=== PATIENT | female | born 1960 | race Caucasian/White ===

== ENCOUNTER 2016-10-14 10:21 | Inpatient (IN) | payer BC, OTHER ==
[~2016-10-14] VITALS: Ht 162.6 cm; Wt 78.3 kg
[~2016-10-14 10:21] MED LIST: CYCL-259 PO; LACT1CAP35 PO; LISI-170 PO; MULT-208 PO; RANI150C PO; TRAM50TA2 PO; VITA1TAB3 PO
[2016-10-14 10:53] VITALS: BP 156/91
[2016-10-14] MEDS ORDERED: LACTATED RINGERS 1,000 ML IV SCH (10:59)
[2016-10-14] MEDS ORDERED: MIDAZOLAM 1 MG/ML, 2ML ONE (12:04)
[2016-10-14] MEDS ORDERED: FENTANYL PF 250 MCG/5ML ONE (12:05)
[2016-10-14] MEDS ORDERED: THROMBIN 5,000 UNIT VIAL TP ONE (12:15)
[2016-10-14] MEDS ORDERED: BUPIVACAINE/PF-EPI 0.25% 1:200K ONE (12:16)
[2016-10-14] MEDS ORDERED: BACITRACIN 50,000 UNIT ONE (12:16)
[2016-10-14] MEDS ORDERED: REMIFENTANIL 2 MG ONE (12:19)
[2016-10-14] MEDS ORDERED: KETAMINE 10 MG/ML, 20ML ONE (12:21)
[2016-10-14] MEDS ORDERED: LABETALOL 5MG/ML, 20ML IV PRN ×2 (13:00→17:00)
[2016-10-14] MEDS ORDERED: ONDANSETRON 2MG/ML, 2ML IVPush PRN (13:00)
[2016-10-14] MEDS ORDERED: MIDAZOLAM 1 MG/ML, 2ML IV PRN (13:00)
[2016-10-14] MEDS ORDERED: ACETAMINOPHEN 325 MG TABLET PO PRN (13:00)
[2016-10-14] MEDS ORDERED: hydrALAzine 20 MG/ML, 1ML IV PRN (13:00)
[2016-10-14] MEDS ORDERED: PROMETHAZINE 25 MG/ML, 1ML IV PRN (13:00)
[2016-10-14] MEDS ORDERED: MEPERIDINE/PF 25MG/0.5ML IVPush PRN (13:00)
[2016-10-14] MEDS ORDERED: OXYcodone 5 MG/5 ML ORAL.SOL UDC PO PRN (13:00)
[2016-10-14] MEDS ORDERED: MORPHINE SULFATE 4 MG/ML, 1ML ONE ×2 (13:52→13:53)
[2016-10-14] MEDS ORDERED: FENTANYL PF 100 MCG/2ML ONE ×2 (14:30→14:37)
[2016-10-14] MEDS ORDERED: morphine SULFATE 10 MG/ML, 1ML ONE (14:37)
[2016-10-14] MEDS ORDERED: OXYcodone 5 MG/5 ML ORAL.SOL UDC ONE (14:38)
[2016-10-14] MEDS ORDERED: MEPERIDINE/PF 25MG/0.5ML ONE (14:38)
[2016-10-14] MEDS: morphine SULFATE 10 MG/ML, 1ML IV PRN ×2 (14:59→15:21)
[2016-10-14] MEDS: FENTANYL PF 100 MCG/2ML IV PRN ×2 (15:05→15:12)
[2016-10-14] MEDS ORDERED: DEXAMETHASONE 4 MG/ML, 1ML ONE (16:09)
[2016-10-14] MEDS ORDERED: METOCLOPRAMIDE 5 MG/ML, 2ML ONE (16:09)
[2016-10-14] MEDS ORDERED: CEFAZOLIN 1,000 MG ONE (16:09)
[2016-10-14] MEDS ORDERED: PROPOFOL 10 MG/ML, 20ML ONE (16:09)
[2016-10-14] MEDS ORDERED: PROPOFOL 10 MG/ML, 50ML ONE (16:09)
[2016-10-14] MEDS ORDERED: ONDANSETRON 2MG/ML, 2ML ONE (16:09)
[2016-10-14] MEDS ORDERED: SUCCINYLCHOLINE 20 MG/ML, 10ML ONE (16:09)
[2016-10-14] MEDS ORDERED: PHENYLEPHRINE 10 MG/ML ONE (16:09)
[2016-10-14] MEDS ORDERED: ONDANSETRON 2MG/ML, 2ML IV PRN (17:00)
[2016-10-14] MEDS ORDERED: DIPHENHYDRAMINE 50 MG/ML, 1ML IVPush PRN (17:00)
[2016-10-14] MEDS ORDERED: DIPHENHYDRAMINE 25 MG CAPSULE PO PRN (17:00)
[2016-10-14] MEDS ORDERED: BISACODYL 10 MG SUPP PR PRN (17:00)
[2016-10-14] MEDS ORDERED: HYDROcodone/APAP 10/325 MG TABLET PO PRN (17:00)
[2016-10-14] MEDS: D5%-0.9% NACL+KCL 20MEQ 1,000 ML IV SCH ×2 (17:00→20:51)
[2016-10-14] MEDS ORDERED: MAGNESIUM HYDROXIDE 8%, 30ML UDC PO PRN (17:00)
[2016-10-14] MEDS ORDERED: morphine SULFATE 10 MG/ML, 1ML IV PRN (17:00)
[2016-10-14] MEDS: DEXAMETHASONE 4 MG/ML, 1ML IV SCH ×2 (17:37→22:46)
[2016-10-14 18:33] VITALS: BP 129/55
[2016-10-14] MEDS: HYDROcodone/APAP 5/325 TABLET PO PRN (20:24)
[2016-10-14] MEDS: CEFAZOLIN PMX 1GM/50ML 50 ML IVPB SCH (20:24)
[2016-10-14] MEDS: CYCLOBENZAPRINE 10 MG TABLET PO PRN (22:53)
[2016-10-14 23:52] VITALS: BP 124/70
[2016-10-15] MEDS: HYDROcodone/APAP 5/325 TABLET PO PRN ×4 (00:33→12:47)
[2016-10-15 04:13] VITALS: BP 131/76
[2016-10-15] MEDS: CEFAZOLIN PMX 1GM/50ML 50 ML IVPB SCH (04:34)
[2016-10-15] MEDS: DEXAMETHASONE 4 MG/ML, 1ML IV SCH (05:31)
[2016-10-15 05:55] LABS: HEMOGLOBIN 13.1 g/dL (11.7-16.4)
[2016-10-15 06:06] LABS: BLOOD UREA NITROGEN 14 mg/dL (7-18)
[2016-10-15] MEDS: CYCLOBENZAPRINE 10 MG TABLET PO PRN (07:02)
[2016-10-15 07:39] VITALS: BP 130/63
[2016-10-15] MEDS ORDERED: SENNA/DOCUSATE TABLET PO SCH (09:00)
[2016-10-15] MEDS ORDERED: HYDR-883 PO (13:00)
[2016-10-15] MEDS ORDERED: METH4TAB2 PO (13:00)
== END 2016-10-15 13:00 | disposition home or self-care (01) | DRG 472 ==
LOC: ORIP 10:21 → 4NOR 15:58 → DCLOUNGE 10-15 12:11
PROVIDERS: ADMIT Neurological Surgery; ATTEND Neurological Surgery
PROC: 01N10ZZ Release Cervical Nerve, Open Approach (ICD-10-PCS; 2016-10-14)
PROC: 4A11X4G Monitoring of Peripheral Nervous Electrical Activity, Intraoperative, External Approach (ICD-10-PCS; 2016-10-14)
PROC: 0RG20A0 Fusion of 2 or more Cervical Vertebral Joints with Interbody Fusion Device, Anterior Approach, Anterior Column, Open Approach (ICD-10-PCS; principal; 2016-10-14 12:30)
DX: M48.02 Spinal stenosis, cervical region (principal); M50.021 Cervical disc disorder at C4-C5 level with myelopathy; G95.89 Other specified diseases of spinal cord; M50.121 Cervical disc disorder at C4-C5 level with radiculopathy; F17.210 Nicotine dependence, cigarettes, uncomplicated; Z80.3 Family history of malignant neoplasm of breast; Z82.49 Family history of ischemic heart disease and other diseases of the circulatory system; Z80.42 Family history of malignant neoplasm of prostate
CPT/HCPCS: 36415; 72040; 80048; 85025; 85610; 85730; 86850; 86900; J0690; J1100; J2175; J2250; J2405; J2704; J3010; J0330; J2270; J2370; J2765; J3480; J7120

== ENCOUNTER → 2020-07-01 | Outpatient (CLI) | payer BC ==
[~2020-07-01] MED LIST changes: +CETI10TA76 PO; +FLUT9.9S NAS; +HYDR-3622 PO; +HYDR-3652 PO; +HYDROCHLOROTH12.5 MG PO; +IBUP200C8 PO; +IRBE300T8 PO; +LANS15CA5 PO; +LEVO112T2 PO; +LEVO125T PO; +METH4TAB2 PO; +METH750T2 PO; +NICO-486 TD; +PSYL1PAC9 PO; +SIMV20TA19 PO
[2020-07-01 10:19] LABS: BASOPHILS % (AUTO) 0 % (0-1); EOSINOPHILS % (AUTO) 1 % (1-7); LYMPHOCYTES % (AUTO) 31 % (22-44); MEAN CORPUSCULAR HEMOGLOBIN 31.7 pg (27.0-34.8); MEAN CORPUSCULAR HGB CONC 33.6 g/dL (32.4-35.8); MONOCYTES % (AUTO) 5 % (2-9); NEUTROPHILS % (AUTO) 63 % (42-75); PLATELET COUNT 368 x10^3/uL (130-400); RED BLOOD COUNT 4.88 x10^6/uL (3.82-5.3)
[2020-07-01 10:23] LABS: MD NO
[2020-07-01 10:27] LABS: MICROSCOPIC AUTO
[2020-07-01 10:29] LABS: ALBUMIN 4.4 g/dL (3.4-5.0); ANION GAP 5 mmol/L (5-15); CALCIUM 9.6 mg/dL (8.5-10.1); CHLORIDE 103 mmol/L (98-107)
[2020-07-01 10:30] LABS: INTERNATIONAL NORMALIZED RATIO 0.95 (0.93-1.1); PROTHROMBIN TIME 10.1 Seconds (9.6-11.5)
[2020-07-01 10:33] LABS: ALANINE AMINOTRANSFERASE 29 U/L (12-78); ALKALINE PHOSPHATASE 87 U/L (45-117); BILIRUBIN,TOTAL 0.7 mg/dL (0.2-1.0); CREATININE 0.92 mg/dL (0.55-1.02); TOTAL PROTEIN 7.8 g/dL (6.4-8.2)
== END | disposition home or self-care (01) ==
LOC: STAR 07:38
PROVIDERS: ATTEND Neurological Surgery
DX: Z01.812 Encounter for preprocedural laboratory examination (principal); Z20.828 Contact with and (suspected) exposure to other viral communicable diseases; Z01.811 Encounter for preprocedural respiratory examination; Z01.810 Encounter for preprocedural cardiovascular examination; R94.31 Abnormal electrocardiogram [ECG] [EKG]; R79.1 Abnormal coagulation profile; R82.90 Unspecified abnormal findings in urine; M54.16 Radiculopathy, lumbar region; M51.26 Other intervertebral disc displacement, lumbar region; M43.16 Spondylolisthesis, lumbar region; M48.061 Spinal stenosis, lumbar region without neurogenic claudication
CPT/HCPCS: 71046; 80053; 81001; 85025; 85610; 85730; 87086; 87635; 93005

== ENCOUNTER 2020-07-07 05:27 | Inpatient (IN) | payer BC ==
[~2020-07-07] VITALS: Ht 162.6 cm; Wt 83.0 kg
[2020-07-07 06:20] VITALS: BP 149/85
[2020-07-07] MEDS ORDERED: LACTATED RINGERS 1,000 ML IV SCH (06:30)
[2020-07-07] MEDS ORDERED: CHLORHEXIDINE 15 ML UDC MM ONE (06:30)
[2020-07-07] MEDS ORDERED: MIDAZOLAM 1 MG/ML, 2ML ONE (06:41)
[2020-07-07] MEDS ORDERED: FENTANYL PF 250 MCG/5ML ONE (06:42)
[2020-07-07] MEDS ORDERED: VANCOMYCIN 1,000 MG ONE (06:42)
[2020-07-07] MEDS ORDERED: BUPIVACAINE/PF 0.5% ONE (06:42)
[2020-07-07] MEDS ORDERED: BACITRACIN 50,000 UNIT ONE (06:42)
[2020-07-07] MEDS ORDERED: EPINEPHRINE 1 MG/ML, 1ML ONE (06:42)
[2020-07-07] MEDS ORDERED: ONDANSETRON 2MG/ML, 2ML ONE (06:54)
[2020-07-07] MEDS ORDERED: ROCURONIUM 10 MG/ML,10ML ONE (06:54)
[2020-07-07] MEDS ORDERED: CEFAZOLIN 1,000 MG ONE (06:54)
[2020-07-07] MEDS ORDERED: DEXAMETHASONE 4 MG/ML, 1ML ONE (06:54)
[2020-07-07] MEDS ORDERED: SUGAMMADEX 200 MG/2 ML IVPush ONE (06:54)
[2020-07-07] MEDS ORDERED: PROPOFOL 10 MG/ML, 20ML ONE (06:54)
[2020-07-07] MEDS ORDERED: METHOCARBAMOL 1,000 MG in DEXTROSE 5% 100 ML IV PRN (07:30)
[2020-07-07] MEDS ORDERED: MEPERIDINE/PF 25MG/0.5ML IVPush PRN (07:30)
[2020-07-07] MEDS ORDERED: OXYcodone 5 MG/5 ML ORAL.SOL UDC PO PRN (07:30)
[2020-07-07] MEDS ORDERED: hydrALAzine 20 MG/ML, 1ML IV PRN (07:30)
[2020-07-07] MEDS ORDERED: PROMETHAZINE 25 MG/ML, 1ML IVPush PRN (07:30)
[2020-07-07] MEDS ORDERED: morphine SULFATE 10 MG/ML, 1ML IVPush PRN (07:30)
[2020-07-07] MEDS ORDERED: ONDANSETRON 2MG/ML, 2ML IVPush PRN (07:30)
[2020-07-07] MEDS ORDERED: DIPHENHYDRAMINE 50 MG/ML, 1ML IVPush PRN ×2 (07:30→09:00)
[2020-07-07] MEDS ORDERED: LABETALOL 5MG/ML, 20ML IV PRN (07:30)
[2020-07-07] MEDS ORDERED: ACETAMINOPHEN 325 MG TABLET PO PRN (07:30)
[2020-07-07] MEDS ORDERED: FENTANYL PF 100 MCG/2ML IV PRN (07:30)
[2020-07-07] MEDS ORDERED: DIAZEPAM 5 MG/ML, 2ML IVPush PRN (07:30)
[2020-07-07] MEDS ORDERED: THROMBIN 5,000 UNIT VIAL TP ONE (07:49)
[2020-07-07] MEDS ORDERED: THROMBIN 20,000 UNIT VIAL TP ONE (08:17)
[2020-07-07] MEDS ORDERED: MAGNESIUM HYDROXIDE 8%, 30ML UDC PO PRN (09:00)
[2020-07-07] MEDS: CETIRIZINE 10 MG TABLET PO SCH (09:00)
[2020-07-07] MEDS ORDERED: METHOCARBAMOL 1,000 MG in DEXTROSE 5% 100 ML IV ONE (09:00)
[2020-07-07] MEDS: MULTIVITAMIN 1 TABLET PO SCH (09:00)
[2020-07-07] MEDS ORDERED: PROMETHAZINE 25 MG/ML, 1ML IM PRN (09:00)
[2020-07-07] MEDS ORDERED: BISACODYL 10 MG SUPP PR PRN (09:00)
[2020-07-07] MEDS: METHOCARBAMOL 750 MG TABLET PO SCH ×3 (09:00→21:07)
[2020-07-07] MEDS: LEVOTHYROXINE 112 MCG TABLET PO SCH (09:00)
[2020-07-07] MEDS ORDERED: TEMPLATE NON-FORMULARY MED. (Vitamin B Complex** 1 TAB) PO SCH (09:00)
[2020-07-07] MEDS: SODIUM CHLORIDE FLUSH 10ML SYR IVF SCH ×2 (09:00→21:00)
[2020-07-07] MEDS ORDERED: PHARMACY MAY ADJ FOR RENAL FX MC PRN (09:00)
[2020-07-07] MEDS: LEVOTHYROXINE 125 MCG TABLET PO SCH (09:00)
[2020-07-07] MEDS ORDERED: FENTANYL PF 100 MCG/2ML ONE (09:02)
[2020-07-07] MEDS ORDERED: MEPERIDINE/PF 25MG/ML,1ML ONE (09:04)
[2020-07-07] MEDS ORDERED: OXYcodone 5 MG/5 ML ORAL.SOL UDC ONE (09:15)
[2020-07-07] MEDS ORDERED: ACETAMINOPHEN 650 MG/20.3 ML UDC ONE (09:15)
[2020-07-07] MEDS: HYDROCHLOROTHIAZIDE 12.5 MG CAPSULE PO SCH (11:07)
[2020-07-07] MEDS: NICOTINE 14MG/24 HR PATCH.TD24 TD SCH (11:08)
[2020-07-07] MEDS: morphine SULFATE 10 MG/ML, 1ML IVPush PRN ×4 (11:09→23:50)
[2020-07-07] MEDS: D5%-0.9% NACL+KCL 20MEQ 1,000 ML IV SCH ×2 (11:57→21:13)
[2020-07-07 12:00] VITALS: BP 117/74
[2020-07-07] MEDS: HYDROcodone/APAP 5/325 TABLET PO PRN ×3 (14:07→22:38)
[2020-07-07] MEDS: CEFAZOLIN PMX 1GM/50ML 50 ML IVPB SCH (16:11)
[2020-07-07] MEDS: SIMVASTATIN 20 MG TABLET PO SCH (19:32)
[2020-07-07 20:03] VITALS: BP 113/60
[2020-07-07 23:59] VITALS: BP 115/60
[2020-07-08] MEDS: CEFAZOLIN PMX 1GM/50ML 50 ML IVPB SCH ×3 (00:15→22:10)
[2020-07-08 04:03] VITALS: BP 108/69
[2020-07-08] MEDS: morphine SULFATE 10 MG/ML, 1ML IVPush PRN ×4 (04:10→22:11)
[2020-07-08] MEDS: LEVOTHYROXINE 112 MCG TABLET PO SCH (04:25)
[2020-07-08] MEDS: PANTOPRAZOLE 40MG TABLET PO SCH (05:28)
[2020-07-08] MEDS ORDERED: ENOXAPARIN 40 MG/0.4 ML SQ SCH (06:00)
[2020-07-08] MEDS ORDERED: VANCOMYCIN 1,000 MG ONE (06:09)
[2020-07-08] MEDS ORDERED: BACITRACIN 50,000 UNIT ONE (06:09)
[2020-07-08] MEDS ORDERED: BUPIVACAINE/EPI 0.5% 1:200K ONE (06:09)
[2020-07-08] MEDS ORDERED: CHLORHEXIDINE 15 ML UDC ONE (06:27)
[2020-07-08] MEDS ORDERED: CHLORHEXIDINE 15 ML UDC MM ONE (06:30)
[2020-07-08] MEDS ORDERED: FENTANYL PF 250 MCG/5ML ONE (06:40)
[2020-07-08] MEDS ORDERED: MIDAZOLAM 1 MG/ML, 2ML ONE (06:40)
[2020-07-08] MEDS ORDERED: BUPIVACAINE/EPI 0.5% 1:200K INFIL ONE (07:38)
[2020-07-08] MEDS ORDERED: BACITRACIN 50,000 UNIT IRRIG ONE (07:39)
[2020-07-08] MEDS ORDERED: VANCOMYCIN 1,000 MG IM ONE (07:39)
[2020-07-08] MEDS ORDERED: LABETALOL 5MG/ML, 20ML IV PRN (08:00)
[2020-07-08] MEDS ORDERED: ACETAMINOPHEN 325 MG TABLET PO PRN (08:00)
[2020-07-08] MEDS ORDERED: OXYcodone 5 MG/5 ML ORAL.SOL UDC PO PRN (08:00)
[2020-07-08] MEDS ORDERED: PROMETHAZINE 25 MG/ML, 1ML IVPush PRN (08:00)
[2020-07-08] MEDS ORDERED: METHOCARBAMOL 1,000 MG in DEXTROSE 5% 100 ML IV PRN (08:00)
[2020-07-08] MEDS ORDERED: LORazepam 2 MG/ML, 1ML IVPush PRN (08:00)
[2020-07-08] MEDS ORDERED: morphine SULFATE 10 MG/ML, 1ML IVPush PRN ×2 (08:00→10:30)
[2020-07-08] MEDS ORDERED: MEPERIDINE/PF 25MG/0.5ML IVPush PRN (08:00)
[2020-07-08] MEDS ORDERED: ALBUTEROL SULFATE 2.5 MG/3 ML NPPB PRN (08:00)
[2020-07-08] MEDS: VITAMIN B COMPLEX HOMEMEDPO SCH (08:36)
[2020-07-08] MEDS: SODIUM CHLORIDE FLUSH 10ML SYR IVF SCH ×4 (08:36→21:00)
[2020-07-08] MEDS: MULTIVITAMIN 1 TABLET PO SCH (08:36)
[2020-07-08] MEDS: METHOCARBAMOL 750 MG TABLET PO SCH ×3 (08:37→21:00)
[2020-07-08] MEDS: CETIRIZINE 10 MG TABLET PO SCH (08:37)
[2020-07-08] MEDS ORDERED: FLUTICASONE NASAL SPRAY 16GM NAS PRN (09:00)
[2020-07-08] MEDS ORDERED: PROPOFOL 10 MG/ML, 20ML ONE (09:49)
[2020-07-08] MEDS ORDERED: GLYCOPYRROLATE 0.2MG/1ML, 5ML ONE (09:49)
[2020-07-08] MEDS ORDERED: CEFAZOLIN 1,000 MG ONE (09:49)
[2020-07-08] MEDS ORDERED: NEOSTIGMINE 1 MG/ML, 10ML ONE (09:49)
[2020-07-08] MEDS ORDERED: ONDANSETRON 2MG/ML, 2ML ONE (09:49)
[2020-07-08] MEDS ORDERED: ROCURONIUM 10MG/ML,5ML ONE (09:49)
[2020-07-08] MEDS ORDERED: METHOCARBAMOL 1,000 MG in DEXTROSE 5% 100 ML IV ONE (10:30)
[2020-07-08] MEDS ORDERED: BISACODYL 10 MG SUPP PR PRN (10:30)
[2020-07-08] MEDS ORDERED: PHARMACY MAY ADJ FOR RENAL FX MC PRN (10:30)
[2020-07-08] MEDS ORDERED: DIPHENHYDRAMINE 50 MG/ML, 1ML IVPush PRN (10:30)
[2020-07-08] MEDS: IRBESARTAN 300 MG TABLET PO SCH (10:30)
[2020-07-08] MEDS ORDERED: MAGNESIUM HYDROXIDE 8%, 30ML UDC PO PRN (10:30)
[2020-07-08] MEDS ORDERED: SENNA/DOCUSATE TABLET PO PRN (10:30)
[2020-07-08] MEDS ORDERED: PROMETHAZINE 25 MG/ML, 1ML IM PRN (10:30)
[2020-07-08] MEDS ORDERED: ONDANSETRON 2MG/ML, 2ML IVPush PRN (10:30)
[2020-07-08] MEDS ORDERED: HYDROcodone/APAP 5/325 TABLET PO PRN (10:30)
[2020-07-08] MEDS ORDERED: OXYcodone/APAP 5/325MG TABLET PO PRN (10:30)
[2020-07-08] MEDS ORDERED: MORPHINE SULFATE 4 MG/ML, 1ML ONE (10:31)
[2020-07-08] MEDS ORDERED: FENTANYL PF 100 MCG/2ML ONE ×2 (10:31→10:59)
[2020-07-08] MEDS: FENTANYL PF 100 MCG/2ML IV PRN ×4 (10:33→11:27)
[2020-07-08] MEDS ORDERED: OXYcodone 5 MG/5 ML ORAL.SOL UDC ONE (10:37)
[2020-07-08] MEDS ORDERED: ACETAMINOPHEN 650 MG/20.3 ML UDC ONE (10:38)
[2020-07-08] MEDS: HYDROCHLOROTHIAZIDE 12.5 MG CAPSULE PO SCH (12:00)
[2020-07-08] MEDS: NICOTINE 14MG/24 HR PATCH.TD24 TD SCH (13:36)
[2020-07-08 14:00] VITALS: BP 115/62
[2020-07-08] MEDS: D5%-0.9% NACL+KCL 20MEQ 1,000 ML IV SCH ×2 (14:25→20:30)
[2020-07-08 19:00] VITALS: BP 117/72
[2020-07-08] MEDS: SIMVASTATIN 20 MG TABLET PO SCH (19:21)
[2020-07-08] MEDS: OXYcodone/APAP 5/325MG TABLET PO PRN (19:21)
[2020-07-09 00:26] VITALS: BP 119/72
[2020-07-09] MEDS: OXYcodone/APAP 5/325MG TABLET PO PRN ×3 (00:55→10:04)
[2020-07-09] MEDS: morphine SULFATE 10 MG/ML, 1ML IVPush PRN ×4 (01:50→19:25)
[2020-07-09 03:54] VITALS: BP 100/67
[2020-07-09] MEDS: LEVOTHYROXINE 125 MCG TABLET PO SCH (05:16)
[2020-07-09] MEDS: PANTOPRAZOLE 40MG TABLET PO SCH (05:30)
[2020-07-09] MEDS: ENOXAPARIN 40 MG/0.4 ML SQ SCH (05:31)
[2020-07-09] MEDS: SENNA/DOCUSATE TABLET PO PRN (06:20)
[2020-07-09 06:23] VITALS: BP 118/77
[2020-07-09] MEDS: D5%-0.9% NACL+KCL 20MEQ 1,000 ML IV SCH ×2 (06:30→16:30)
[2020-07-09] MEDS: CETIRIZINE 10 MG TABLET PO SCH (08:09)
[2020-07-09] MEDS: HYDROCHLOROTHIAZIDE 12.5 MG CAPSULE PO SCH (08:10)
[2020-07-09] MEDS: VITAMIN B COMPLEX HOMEMEDPO SCH (08:10)
[2020-07-09] MEDS: IRBESARTAN 300 MG TABLET PO SCH (08:10)
[2020-07-09] MEDS: NICOTINE 14MG/24 HR PATCH.TD24 TD SCH (08:10)
[2020-07-09] MEDS: SODIUM CHLORIDE FLUSH 10ML SYR IVF SCH ×4 (08:11→21:00)
[2020-07-09] MEDS: MULTIVITAMIN 1 TABLET PO SCH (08:11)
[2020-07-09] MEDS: METHOCARBAMOL 750 MG TABLET PO SCH ×3 (08:11→20:03)
[2020-07-09] MEDS: ONDANSETRON 2MG/ML, 2ML IVPush PRN ×2 (08:18→13:47)
[2020-07-09 12:20] VITALS: BP 105/71
[2020-07-09] MEDS: HYDROcodone/APAP 5/325 TABLET PO PRN ×3 (15:56→23:49)
[2020-07-09] MEDS: PSYLLIUM PACKET PO SCH (17:45)
[2020-07-09] MEDS: SIMVASTATIN 20 MG TABLET PO SCH (20:03)
[2020-07-09 20:06] VITALS: BP 94/60
[2020-07-10] MEDS: morphine SULFATE 10 MG/ML, 1ML IVPush PRN ×4 (00:25→20:42)
[2020-07-10 01:51] VITALS: BP 110/72
[2020-07-10] MEDS: D5%-0.9% NACL+KCL 20MEQ 1,000 ML IV SCH ×2 (02:30→12:30)
[2020-07-10] MEDS: HYDROcodone/APAP 5/325 TABLET PO PRN ×5 (03:46→19:34)
[2020-07-10] MEDS: ENOXAPARIN 40 MG/0.4 ML SQ SCH (06:00)
[2020-07-10] MEDS: PANTOPRAZOLE 40MG TABLET PO SCH (06:00)
[2020-07-10] MEDS: LEVOTHYROXINE 112 MCG TABLET PO SCH (06:00)
[2020-07-10 07:06] VITALS: BP 120/73
[2020-07-10] MEDS: METHOCARBAMOL 750 MG TABLET PO SCH ×3 (07:56→21:16)
[2020-07-10] MEDS: MULTIVITAMIN 1 TABLET PO SCH (07:56)
[2020-07-10] MEDS: HYDROCHLOROTHIAZIDE 12.5 MG CAPSULE PO SCH (07:56)
[2020-07-10] MEDS: CETIRIZINE 10 MG TABLET PO SCH (07:57)
[2020-07-10] MEDS: SENNA/DOCUSATE TABLET PO PRN (07:57)
[2020-07-10] MEDS: PSYLLIUM PACKET PO SCH (07:57)
[2020-07-10] MEDS: IRBESARTAN 300 MG TABLET PO SCH (08:00)
[2020-07-10] MEDS: SODIUM CHLORIDE FLUSH 10ML SYR IVF SCH ×4 (08:00→21:19)
[2020-07-10] MEDS: VITAMIN B COMPLEX HOMEMEDPO SCH (08:00)
[2020-07-10] MEDS: NICOTINE 14MG/24 HR PATCH.TD24 TD SCH (08:01)
[2020-07-10] MEDS: DEXAMETHASONE 4 MG/ML, 1ML IVPush SCH ×3 (09:31→21:15)
[2020-07-10] MEDS: KETOROLAC 30 MG/1 ML IVPush SCH ×3 (09:32→21:16)
[2020-07-10 12:25] VITALS: BP 140/83
[2020-07-10 19:04] VITALS: BP 102/62
[2020-07-10] MEDS: SIMVASTATIN 20 MG TABLET PO SCH (21:16)
[2020-07-11 01:35] VITALS: BP 121/65
[2020-07-11] MEDS: D5%-0.9% NACL+KCL 20MEQ 1,000 ML IV SCH ×2 (02:00→11:59)
[2020-07-11] MEDS: KETOROLAC 30 MG/1 ML IVPush SCH ×2 (02:06→09:25)
[2020-07-11] MEDS: DEXAMETHASONE 4 MG/ML, 1ML IVPush SCH ×2 (02:06→09:25)
[2020-07-11] MEDS: HYDROcodone/APAP 5/325 TABLET PO PRN ×3 (02:07→12:18)
[2020-07-11] MEDS: LEVOTHYROXINE 112 MCG TABLET PO SCH (03:59)
[2020-07-11] MEDS: ENOXAPARIN 40 MG/0.4 ML SQ SCH (05:54)
[2020-07-11] MEDS: PANTOPRAZOLE 40MG TABLET PO SCH (05:55)
[2020-07-11 07:05] VITALS: BP 126/70
[2020-07-11] MEDS ORDERED: HYDR-3246 PO (08:27)
[2020-07-11] MEDS: SODIUM CHLORIDE FLUSH 10ML SYR IVF SCH ×2 (09:00→09:26)
[2020-07-11] MEDS: VITAMIN B COMPLEX HOMEMEDPO SCH (09:00)
[2020-07-11] MEDS: CETIRIZINE 10 MG TABLET PO SCH (09:25)
[2020-07-11] MEDS: IRBESARTAN 300 MG TABLET PO SCH (09:25)
[2020-07-11] MEDS: MULTIVITAMIN 1 TABLET PO SCH (09:25)
[2020-07-11] MEDS: NICOTINE 14MG/24 HR PATCH.TD24 TD SCH (09:25)
[2020-07-11] MEDS: METHOCARBAMOL 750 MG TABLET PO SCH (09:25)
[2020-07-11] MEDS: HYDROCHLOROTHIAZIDE 12.5 MG CAPSULE PO SCH (09:25)
[2020-07-11] MEDS: morphine SULFATE 10 MG/ML, 1ML IVPush PRN (11:32)
== END 2020-07-11 13:05 | disposition home or self-care (01) | DRG 455 ==
LOC: ORIP 05:27 → 4NE 10:13
PROVIDERS: ADMIT Neurological Surgery; ATTEND Neurological Surgery
PROC: 00NY0ZZ Release Lumbar Spinal Cord, Open Approach (ICD-10-PCS; 2020-07-08)
PROC: 01NB0ZZ Release Lumbar Nerve, Open Approach (ICD-10-PCS; 2020-07-08)
PROC: 0SB20ZZ Excision of Lumbar Vertebral Disc, Open Approach (ICD-10-PCS; 2020-07-08)
PROC: 4A11X4G Monitoring of Peripheral Nervous Electrical Activity, Intraoperative, External Approach (ICD-10-PCS; 2020-07-08)
PROC: 0SG10AJ Fusion of 2 or more Lumbar Vertebral Joints with Interbody Fusion Device, Posterior Approach, Anterior Column, Open Approach (ICD-10-PCS; principal; 2020-07-08 07:00)
PROC: 0SG0071 Fusion of Lumbar Vertebral Joint with Autologous Tissue Substitute, Posterior Approach, Posterior Column, Open Approach (ICD-10-PCS; 2020-07-08 07:00)
DX: M51.16 Intervertebral disc disorders with radiculopathy, lumbar region (principal); M43.16 Spondylolisthesis, lumbar region; M48.062 Spinal stenosis, lumbar region with neurogenic claudication; F17.210 Nicotine dependence, cigarettes, uncomplicated; Z53.9 Procedure and treatment not carried out, unspecified reason; Z88.5 Allergy status to narcotic agent; Z79.899 Other long term (current) drug therapy
CPT/HCPCS: 36415; 72100; S0020; 72131; 86850; 86900; C1713; C1776; G0378; J0171; J0690; J1100; J1650; J1885; J2175; J2250; J2405; J2704; J2710; J3010; J3370; C1763; J2270; J2800; J3480; J7120